=== PATIENT | male | born 1985 | race Caucasian/White ===

== ENCOUNTER 2017-03-17 07:42 | Emergency (ER) | payer OTHER ==
--- OUTSIDE RECORDS SUMMARY | 2017-03-17 07:54 | XMS REPORT ---
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 Manny Mederos MD Primary Care Physician Unavailable Payers Type Date Identification Numbers Payment Provider Subscriber Commercial Effective: Policy Number: [id number] [facility] Lalita Rodriguez 2017 Group Number: [id number] [address] PayID: [id number] [place] [address] Problems Description No Information Social History Description No Information Available Allergies, Adverse Reactions, Alerts Date Description Reaction Status Severity Comments 03/05/2017 Sulfa Antibiotics active in childhood 03/05/2017 Lactose active Medications Medication Date Status Form Strength Qnty SIG Indications Ordering Provider Prozac Active Capsules 10mg 1 by mouth Unknown 0 every day as needed Vital Signs Date Vital Result Comment 03/05/2017 BP Systolic 114 mmHg BP Diastolic 80 mmHg Heart Rate 64 /min Body Temperature 98.6 F Height 74 inches 6'2" Weight 213.00 lb BMI (Body Mass Index) 27.3 kg/m2 Right Visual Acuity Distance 20/20 Left Visual Acuity Distance 20/20 Results Description No Information Procedures Description No Information Plan of Care No Information Available
[2017-03-17 07:59] VITALS: BP 128/80
--- NOTE | 2017-03-17 08:00 | UC ---
Respiratory Complaint HPI - HPI Summary HPI Summary: Pt presents with 5 days of productive cough, sinus pain/pressure/congestion, and fever. He has been taking sudafed, which has been helping him "stay dry". He did not get a flu shot this year. Feels SOB at times and can hear wheezing in his lungs when taking a deep breath. Denies sore throat, body aches, chest pain, abdominal pain, n/v/d/c. - History of Current Complaint Chief Complaint: UCRespiratory Stated Complaint: RESP ISSUE Time Seen by Provider: 03/17/17 08:00 Hx Obtained From: Patient Onset/Duration: Gradual Onset Timing: Constant Severity Initially: Mild Severity Currently: Moderate Pain Intensity: 5 Pain Scale Used: 0-10 Numeric Character: Cough: Productive - Allergies/Home Medications Allergies/Adverse Reactions: Allergies Allergy/AdvReac Type Severity Reaction Status Date / Time lactose Allergy DIARHEA Verified 03/17/17 07:55 Sulfa (Sulfonamide Allergy UNK Verified 03/17/17 07:54 Antibiotics) PMH/Surg Hx/FS Hx/Imm Hx Previously Healthy: Yes - Surgical History Surgical History: Yes Surgery Procedure, Year, and Place: hernia - Family History Known Family History: Positive: None - Social History Occupation: Employed Full-time Lives: With Family Alcohol Use: Rare Substance Use Type: Marijuana Smoking Status (MU): Never Smoked Tobacco Review of Systems Constitutional: Fever Skin: Negative Eyes: Negative ENT: Nasal Discharge, Sinus Congestion, Sinus Pain/Tenderness Respiratory: Cough Cardiovascular: Negative Gastrointestinal: Negative Genitourinary: Negative Neurological: Negative Psychological: Negative All Other Systems Reviewed And Are Negative: Yes Physical Exam Triage Information Reviewed: Yes Appearance: No Pain Distress, Well-Nourished, Ill-Appearing Vital Signs: Initial Vital Signs Temp 96.2 F 03/17/17 07:55 Pulse 104 03/17/17 07:55 Resp 22 03/17/17 07:55 BP 128/80 03/17/17 07:55 Pulse Ox 96 03/17/17 07:55 Vital Signs Reviewed: Yes Eyes: Positive: Conjunctiva Clear. Negative: Conjunctiva Inflamed, Discharge ENT: Positive: Hearing grossly normal, Pharyngeal erythema, Nasal congestion, Nasal drainage, TMs normal, Uvula midline. Negative: TM bulging, TM dull, TM red, Tonsillar swelling, Tonsillar exudate, Hoarse voice, Sinus tenderness Neck: Positive: Supple, Nontender, No Lymphadenopathy Respiratory: Positive: No respiratory distress, No accessory muscle use, Crackles - RLL, Wheezing - Moderate throughout Cardiovascular: Positive: RRR, No Murmur, Pulses Normal Neurological: Positive: Alert Psychological: Positive: Age Appropriate Behavior Skin: Negative: rashes UC Diagnostic Evaluation - Laboratory O2 Sat by Pulse Oximetry: 96 Re-Evaluation - Re-Evaluation First Eval Re-Evaluation Time: 08:41 Change: Improved Comment: Improved lung sounds - decreased wheezing, still mild throughout. Pt says he feels slightly better. Respiratory Course/Dx - Course Course Of Treatment: CXR - IMPRESSION: No radiographic evidence of acute cardiopulmonary disease. Duoneb - improved s/p. Given his length of symptoms will treat with azithromycin and albuterol inhaler. - Differential Dx/Diagnosis Provider Diagnoses: Bronchitis Discharge - Discharge Plan Condition: Stable Disposition: HOME Prescriptions: Albuterol HFA INHALER* [Ventolin HFA Inhaler*] 2 puff INH Q6H PRN #1 mdi PRN Reason: Sob/Wheezing Azithromycin TAB* [Zithromax TAB (Z-SENTHIL) 250 mg #6 tabs] 2 tab PO .TODAY, THEN 1 DAILY #1 senthil Patient Education Materials: Acute Bronchitis (ED) Forms: *Work Release Referrals: Manny Mederos MD [Primary Care Provider] - Additional Instructions: If you develop a fever, shortness of breath, chest pain, new or worsening symptoms - please call your PCP or go to the ED.
[2017-03-17] MEDS ORDERED: Albuterol/Ipratropium NEB.SOL* Albuterol 2.5 MG/Ipratropium 0.5 MG 3 ML INH ONE (08:08)
--- NOTE | 2017-03-17 09:00 | RAD ---
INDICATION: Cough x3 days COMPARISON: None TECHNIQUE: PA and lateral views of the chest were obtained. FINDINGS: The heart and mediastinum are normal in size and contour. The lungs are grossly clear. There is no evidence of large pleural effusion. Visualized bones are normal for the patient's age. There is no radiographic evidence of free air beneath the diaphragm IMPRESSION: No radiographic evidence of acute cardiopulmonary disease.
== END 2017-03-17 08:59 | disposition home or self-care (01) ==
LOC: UCEAST 07:42
DX: J40 Bronchitis, not specified as acute or chronic (principal); F12.90 Cannabis use, unspecified, uncomplicated
CPT/HCPCS: 71046; 99212; A9270-GY; G0463